=== PATIENT | male | born 1985 | race Caucasian/White ===

== ENCOUNTER 2018-07-01 06:01 | Emergency (ER) | payer OTHER ==
[~2018-07-01] VITALS: Ht 188 cm; Wt 109.1 kg
[2018-07-01 06:05] VITALS: TEMP 97.5
[2018-07-01] MEDS ORDERED: ZYRTEC 10MG10 MG PO (06:08)
[2018-07-01] MEDS ORDERED: ANTIBIOTIC (06:30)
[2018-07-01 06:40] LABS: BASO % 0.6 % (0.0-2.0); EOS # 0.2 (0.0-0.7); EOS % 2.4 % (0-4.0); GRAN # 3.2 (1.4-6.5); GRAN % 47.8 % (42.2-75.2); HEMATOCRIT 46.1 % (42.0-52.0); HEMOGLOBIN 15.3 g/dl (13.5-18.0); LYMPH # 2.8 (1.2-3.4); LYMPH % 42.6 % (20.0-51.0); MEAN CELL VOLUME 88 fl (80.0-100.0); MEAN CORPUSCULAR HEMOGLOBIN 29 pg (27.0-31.0); MEAN CORPUSCULAR HGB CONC 33 g/dl (33.0-37.0); MEAN PLATELET VOLUME 9.4 fl (7.4-10.4); MONO # 0.4 (0.1-0.6); MONO % 6.4 % (1.7-9.3); PLATELET COUNT 280 K/mm3 (130-400); RED BLOOD COUNT 5.25 M/mm3 (4.20-5.60); REDCELL DISTRIBUTION WIDTH-CV 12.3 % (11.5-14.5)
[2018-07-01 06:49] LABS: BILIRUBIN,TOTAL 0.8 mg/dL (0.0-1.0); CALCIUM 8.8 mg/dL (8.4-10.2); CREATININE, serum 0.87 mg/dL (0.66-1.25); POTASSIUM 4.7 mmol/L (3.4-5.0); TOTAL PROTEIN 7.1 gm/dL (6.4-8.2)
[2018-07-01] MEDS ORDERED: FIORICET 325 MG1 TA1 PO (14:43)
[2018-07-01] MEDS ORDERED: INDOCIN 25MG CA25 MG PO (15:01)
[2018-07-01] MEDS ORDERED: ZYRTEC ALLERGY10 MG PO (15:01)
[2018-07-01 15:03] VITALS: BP 115/67; PULSE 52
== END 2018-07-01 15:03 | disposition home or self-care (01) ==
LOC: COL.ER 06:01
PROVIDERS: Emergency Medicine
DX: R55 Syncope and collapse (principal); R51 Headache
CPT/HCPCS: A9585; J1170; J1885; J2550; J7030; J7040